=== PATIENT | male | born 1955 | race Caucasian/White ===

== ENCOUNTER 2022-05-30 09:34 | Outpatient (CLI) | payer MEDICARE, MEDICAID ==
[2022-05-30] VITALS (17 sets, daily range): BP systolic 115–171; BP diastolic 66–104
== END 2022-05-30 23:59 | disposition home or self-care (01) ==
LOC: CARD DIAG 09:34
PROVIDERS: ATTEND Internal Medicine Interventional Cardiology
DX: R55 Syncope and collapse (principal)
CPT/HCPCS: 93660